=== PATIENT | female | born 1995 | race Caucasian/White ===

== ENCOUNTER 2017-02-08 14:33 | Emergency (ER) | payer OTHER ==
[2017-02-08] MEDS ORDERED: ONDANSETRON HCL/PF 4 MG/ 2ML VIAL IVP ONE ×2 (14:59→16:54)
[2017-02-08] MEDS ORDERED: 0.9 % SODIUM CHLORIDE 1,000 ML IV SCH (15:00)
[2017-02-08] MEDS ORDERED: 0.9 % SODIUM CHLORIDE 1,000 ML IV ONE (15:16)
[2017-02-08 15:37] LABS: BASOPHILS % 0.3 (0.0-1.5); EOSINOPHILS % 0.2 % (0.0-6.8); MEAN CORPUSCULAR HEMOGLOBIN 28.8 pg (28.0-34.0); MEAN CORPUSCULAR VOLUME 83.1 fl (80.0-100.0); MONOCYTES % 2.7 % (0.0-11.0)
[2017-02-08 16:14] LABS: eGFR (African) > 60; eGFR (Non-African) > 60
[2017-02-08 17:27] VITALS: BP 123/59
--- NOTE | 2017-02-08 17:32 | ED Physician Documentation ---
Abdominal Pain - HISTORIAN Historian: patient, friend, parent - HPI Stated Complaint: Abdominal pain with nausea and vomiting Chief Complaint: Abdominal Pain Additonal Information: N/E/D plus genl abd pain more lower abd feeling of "plugged up" onset2 days ago- worse today-now dry heaves--pt takes zantac for epigastric distress. pos chills yest - uncertain of fever-"SEEMS LIKE VIRUS" NO KNOWN ASSOC W/OTHER PT WITH SIMILAR. Onset: days ago (2) Duration: waxing, waning Timing: worse Context: denies: out of country travel, bad food, recent trauma Severity: moderate Quality: pain, cramping, sharp Associated Symptoms: chills, nausea, vomiting, diarrhea (emesis yellow diarrhea [id number] blood pus or mucous) - ROS CONST: no problems GI/: constipation (in past) CVS/RESP: none EYES/ENT: none MS/SKIN/LYMPH: none NEURO/PSYCH: none - SOCIAL HX Smoking History: non-smoker Alcohol Use: rarely Drug Use: none - FAMILY HX Family History: no significant history - PAST HX Past History: GERD Surgeries/Procedures: none Immunizations: UTD Home Medications: Ambulatory Orders Medication Instructions Recorded Norethindrone AC-Eth Estradiol 1 each PO 02/08/17 [Microgestin 21 1-20 Tablet] Ondansetron HCl Rapdis [Zofran Odt] 4 mg PO Q4 PRN #8 tab 02/08/17 Ranitidine HCl [Zantac] 150 mg PO 02/08/17 Sertraline HCl [Zoloft] 100 mg PO DAILY 02/08/17 Allergies/Adverse Reactions: Allergies Allergy/AdvReac Type Severity Reaction Status Date / Time No Known Allergies Allergy Unverified 02/08/17 14:50 - VITAL SIGNS Vital Signs: Vital Signs Temp Pulse Resp BP Pulse Ox 98.3 F 60 16 101/56 97 02/08/17 14:46 02/08/17 14:46 02/08/17 14:46 02/08/17 14:46 02/08/17 14:46 - REVIEWED ASSESSMENTS Nursing Assessment Reviewed: Yes Vitals Reviewed: Yes ED Results Lab/Radiology - Lab Results Lab Results: Lab Results 02/08/17 02/08/17 15:25 15:25 WBC 6.90 K/ul K/ul (4.00-12.00) RBC 4.87 M/ul M/ul (3.90-5.20) Hgb 14.0 g/dL g/dL (12.0-16.0) Hct 40.4 % % (34.5-46.5) MCV 83.1 fl fl (80.0-100.0) MCH 28.8 pg pg (28.0-34.0) MCHC 34.7 g/dL g/dL (30.0-36.0) RDW 12.9 % % (11.3-14.3) Plt Count 222 K/mm3 K/mm3 (130-400) Neut % (Auto) 85.9 % H % (39.0-79.0) Lymph % (Auto) 10.3 % L % (16.0-50.0) [place] % (Auto) 2.7 % % (0.0-11.0) Eos % (Auto) 0.2 % % (0.0-6.8) Baso % (Auto) 0.3 (0.0-1.5) Neut # 6.0 # k/uL # k/uL (1.4-7.7) Lymph # 0.7 # k/uL # k/uL (0.6-4.0) [place] # 0.2 # k/uL # k/uL (0.0-0.9) Eos # 0.0 # k/uL # k/uL (0.0-0.6) Baso # 0.0 # k/uL # k/uL (0.0-0.5) Reactive Lymphs % 0.6 % % (0.0-5.0) Reactive Lymphs # 0.0 # k/uL # k/uL (0.0-0.8) Sodium 140 mmol/L mmol/L (136-145) Potassium 3.1 mmol/L L mmol/L (3.5-5.0) Chloride 106 mmol/L mmol/L (98-110) Carbon Dioxide 25 mmol/L mmol/L (20-32) BUN 13 mg/dL mg/dL (10-26) Creatinine 0.6 mg/dL mg/dL (0.4-1.5) Estimated Creat Clear 274 Est GFR ( Amer) > 60 (60 - ) Est GFR (Non-Af Amer) > 60 (60 - ) Glucose 126 mg/dL H mg/dL (70-99) Calcium 10.0 mg/dL mg/dL (8.5-10.5) Total Bilirubin 0.4 mg/dL mg/dL (0.2-1.2) AST 18 U/L U/L (0-41) ALT 10 U/L U/L (0-45) Alkaline Phosphatase 60 U/L U/L (46-116) Total Protein 8.1 g/dL g/dL (6.0-8.5) Albumin 4.7 g/dL g/dL (3.0-5.5) Amylase 47 U/L U/L (20-104) - Radiology Radiology Impressions: xss gas feces ascending colon-reviewed w/ mom. after discussion w/pt-mom will go home use miralax to clean out rt colon-if not better rted soon or see pcp. pt says feels like "plugged up" - Orders Orders: ED Orders Category Date Time Status ABD SERIES PA CHEST [RAD] Stat Exams 02/08/17 Ordered AMYLASE Routine Lab 02/08/17 15:25 Completed CBC/PLATELET/DIFF Routine Lab 02/08/17 15:25 Completed CMP Routine Lab 02/08/17 15:25 Completed URINALYSIS Routine Lab 02/08/17 Ordered 0.9 % Sodium Chloride [Normal Saline] 1,000 ml Med 02/08/17 15:00 Ordered IV Q10H Ondansetron HCl/Pf [Zofran 4 mg/2 ml] Med 02/08/17 14:59 Discontinued 4 mg IVP NOW ONE Ondansetron HCl/Pf [Zofran 4 mg/2 ml] Med 02/08/17 16:54 Discontinued 4 mg IVP NOW ONE Abdominal Pain Physical Exam - Physical Exam General Appearance: moderate distress EENT: eye inspection normal, ENT inspection normal NECK: normal inspection, thyroid normal, supple RESPIRATORY: no resp distress, chest non-tender, breath sounds normal CVS: reg rate & rhythm, heart sounds normal ABDOMEN: soft, tenderness (generalized but more in lower abdomen. bowel sounds decreased) SKIN: warm/dry, normal color. No: cyanosis, diaphoresis, jaundice EXTREMITIES: non-tender, normal range of motion, no evidence of injury NEURO: oriented X3, motor nml, sensation nml, mood/affect nml Vital Signs: Vital Signs Temp Pulse Resp BP Pulse Ox 98.3 F 60 16 101/56 97 02/08/17 14:46 02/08/17 14:46 02/08/17 14:46 02/08/17 14:46 02/08/17 14:46 Discharge Clincal Impression: un dx abd pain Prescriptions: Ondansetron HCl Rapdis [Zofran Odt] 4 mg PO Q4 PRN #8 tab PRN Reason: Nausea / Vomiting Referrals: Primary Doctor,No [Primary Care Provider] - 2 Days Home Medications: Ambulatory Orders Norethindrone AC-Eth Estradiol [Microgestin 21 1-20 Tablet] 1 each PO 02/08/17 Ondansetron HCl Rapdis [Zofran Odt] 4 mg PO Q4 PRN #8 tab 02/08/17 Ranitidine HCl [Zantac] 150 mg PO 02/08/17 Sertraline HCl [Zoloft] 100 mg PO DAILY 02/08/17 Comments: will ret ed stat if sy worsen. pt mom agree to this approach but understand may need further studies rabia if not relieved by plan Condition: Good Disposition: 01 HOME, SELF-CARE Decision to Admit: NO Decision Time: 17:31
--- NOTE | 2017-02-08 18:28 | Diagnostic Imaging Report ---
[facility] [address] [facility].[address] [id number] Report Submission Date: Feb 08, 2017 4:01:14 PM CDT Patient Study Name: BRITANY BRYAN Date: Feb 08, 2017 3:28:28 PM CDT Modality Type: CR Gender: F Description: CHEST,ABDOMEN : 89 Institution: [facility] Physician: ORIN LUONG - ER Examination: Chest /Abdomen series History: Abdominal scattered Findings: 4 views obtained of the chest and abdomen. Single view of the chest demonstrates a normal cardiac silhouette. No focal infiltrate or effusion. No abnormal dilation of the large or small bowel. Air and stool throughout the large bowel. No suspicious calcification projecting over the renal fossa or the lower pelvic region. Osseous structures are appropriate for age. Impression: No acute pulmonary process. No ileus or obstruction. No suspicious calcifications by plain film sensitivity. Electronically signed on Feb 08, 2017 4:01:14 PM CDT by: Leonid MARQUEZ
== END 2017-02-08 17:24 | disposition home or self-care (01) ==
LOC: ED 14:33
DX: R10.9 Unspecified abdominal pain (principal)
CPT/HCPCS: 74022; 80053; 82150; 85025; J2405; J7030; 96361; 96376; 99283; S1016

== ENCOUNTER 2017-02-09 18:38 | Emergency (ER) | payer OTHER ==
[2017-02-09] MEDS ORDERED: 0.9 % SODIUM CHLORIDE 1,000 ML IV ONE ×2 (19:08→20:42)
[2017-02-09] MEDS ORDERED: 0.9 % SODIUM CHLORIDE 50 ML IV ONE (19:18)
[2017-02-09] MEDS ORDERED: PROMETHAZINE HCL 25 MG/ML VIAL ONE (19:18)
[2017-02-09] MEDS ORDERED: PROMETHAZINE HCL 25 MG in 0.9 % SODIUM CHLORIDE 50 ML IV ONE (19:18)
[2017-02-09] MEDS ORDERED: 0.9 % SODIUM CHLORIDE 1,000 ML IV SCH (19:30)
[2017-02-09 19:34] LABS: BASOPHILS % 0.3 (0.0-1.5); EOSINOPHILS % 0.4 % (0.0-6.8); MEAN CORPUSCULAR HEMOGLOBIN 28.9 pg (28.0-34.0); MEAN CORPUSCULAR VOLUME 81.8 fl (80.0-100.0); MONOCYTES % 2.9 % (0.0-11.0); NEUTROPHILS # 6.7 # k/uL (1.4-7.7)
[2017-02-09 19:48] LABS: eGFR (African) > 60; eGFR (Non-African) > 60
--- NOTE | 2017-02-09 19:53 | ED Physician Documentation ---
Nausea/Vomiting/Diarrhea - HISTORIAN Historian: patient - HPI Stated Complaint: nausea/vomiting Chief Complaint: Nausea,Vomiting,Diarrhea Timing: gradual onset Context: denies: out of country travel, bad food Severity: denies: moderate Further Comments: yes (sixPatient states she is develop some nausea and vomiting approximately four days ago. Patient stated is last for approximately 12 hours and then symptoms got better. However yesterday she started having some nausea vomiting again. This was associated with dry heaves. Patient has had some mild diarrhea but no fever. Patient was seen in the ED last night. Was felt to have a viral gap enteritis and was discharged home. Patient states she did fairly well this morning however this afternoon started having some nausea and vomiting once again. Patient has been dry heaving. Patient has been vomiting bilious material. Patient denies any recent fever or chills. Patient denies any previous abdominal problems. Patient is not had any abdominal surgery. Patient is currently taking control pills. Does have some mild diffuse tenderness to the epigastric admitted abdominal area. Patient describes it as being a burning cramping type pain.) - Associated Symptoms Vomiting: bilious. denies: bloody, blood-streaked Diarrhea: mild Abdominal Pain: cramping, burning, moderate - ROS CONST: chills. denies: fever - PAST HX Past History: other (anxiety) Other History: denies: gall stones Surgeries/Procedures: none - SOCIAL HX Smoking History: less than 1 pack/day (5/d) Alcohol Use: occasionally Drug Use: none - FAMILY HX Family History: none - REVIEWED ASSESSMENTS Nursing Assessment Reviewed: Yes Vitals Reviewed: Yes <John Francis - Last Filed: 02/09/17 19:35> <SOL NULL - Last Filed: 02/09/17 21:16> - PAST HX Allergies/Adverse Reactions: Allergies Allergy/AdvReac Type Severity Reaction Status Date / Time No Known Allergies Allergy Verified 02/09/17 18:51 Home Medications: Ambulatory Orders Medication Instructions Recorded Norethindrone AC-Eth Estradiol 1 each PO DAILY 02/08/17 [Microgestin 21 1-20 Tablet] Ondansetron HCl Rapdis [Zofran Odt] 4 mg PO Q4 PRN #8 tab 02/08/17 Ranitidine HCl [Zantac] 150 mg PO DAILY 02/08/17 Sertraline HCl [Zoloft] 100 mg PO DAILY 02/08/17 - VITAL SIGNS Vital Signs: Vital Signs Temp Pulse Resp BP Pulse Ox 98.7 F 118 H 22 123/59 98 02/09/17 18:52 02/09/17 18:52 02/09/17 18:52 02/09/17 18:52 02/09/17 18:52 Progress <John Francis - Last Filed: 02/09/17 19:35> <SOL NULL - Last Filed: 02/09/17 21:16> - Progress Progress: Examination: CT Abdomen/pelvis History: Right upper quadrant discomfort Comparison exams: None available Technique: CT Abdomen/pelvis with IV protocol. Findings: Liver, spleen, adrenals, pancreas, gallbladder are without gross irregularity. No abnormal enhancement. Bowel unopacified limiting evaluation. No abnormal dilation. Stool within the large bowel limiting sensitivity. No mesenteric inflammatory changes or free fluid. Osseous structures within normal limits. Lung bases with mild atelectasis. Fluid collection adjacent to the left aspect of the rectum measuring 6. 3 cm maxilmally. No adjacent inflammatory changes or thickened margins. Impression: No abdominal mass or inflammatory process. Left perirectal fluid collection measuring 6.3 cm maximally. No thickened margin to suggest loculated abscess. Correlate with any history of old injury/ surgery. Electronically signed on Feb 09, 2017 8:33:05 PM CDT by: Leonid Brooks She denies rectal or abdominal injury. 2039, says she feels better. (SOL NULL) Nausea Physical Exam - EXAM General Appearance: alert, moderate distress EENT: ENT inspection normal Neck: normal inspection, supple Respiratory: no resp distress, chest non-tender, breath sounds normal CVS: reg rate & rhythm, heart sounds normal, equal pulses, no murmur, no gallop Abdomen: no organomegaly, tenderness (mild diffuse tenderness), abnml bowel sounds (deminished), splenomegaly. No: guarding, rebound, hepatomegaly, distended bladder Back: non-tender Skin: warm/dry, normal color Extremities: non-tender Neuro/Psych: oriented X3, mood/affect nml <John Francis - Last Filed: 02/09/17 19:35> Discharge <John Francis - Last Filed: 06/20/17 19:35> Decision to Admit: NO Decision Time: 21:15 <SOL NULL - Last Filed: 02/09/17 21:16> Clincal Impression: Nausea & vomiting Referrals: Primary Doctor,No [Primary Care Provider] - 2 Days Additional Instructions: Advance your diet very slowly. If you vomit, wait an hour before trying sips of liquids. Follow up with your provider in the next 10-14 days to further evaluate the perirectal fluid collection see on the CT scan. Home Medications: Ambulatory Orders Norethindrone AC-Eth Estradiol [Microgestin 21 1-20 Tablet] 1 each PO DAILY Ondansetron HCl Rapdis [Zofran Odt] 4 mg PO Q4 PRN #8 tab 02/08/17 Ranitidine HCl [Zantac] 150 mg PO DAILY 02/08/17 Sertraline HCl [Zoloft] 100 mg PO DAILY 02/08/17 Condition: Good Disposition: 01 HOME, SELF-CARE
[2017-02-09] MEDS ORDERED: POTASSIUM CHLORIDE IV ONE ×2 (20:04)
[2017-02-09] MEDS ORDERED: POTASSIUM CHLORIDE 20 MEQ TABLET.ER PO ONE (20:42)
[2017-02-09] MEDS ORDERED: ONDANSETRON HCL/PF 4 MG/ 2ML VIAL ONE (21:52)
[2017-02-09] MEDS ORDERED: ONDANSETRON HCL/PF 4 MG/ 2ML VIAL IVP ONE (21:55)
[2017-02-09 22:06] VITALS: BP 121/67
--- NOTE | 2017-02-09 23:30 | Diagnostic Imaging Report ---
WANDA GOINS~ [facility] [address] [facility] [address] [place] [address]. [id number] ~ ~ ~ ~ Report Submission Date: Feb 09, 2017 8:33:05 PM CDT Patient ~ Study Name: BRITANY BRYAN ~ Date: Feb 09, 2017 7:54:10 PM CDT ~ Modality Type: CT\SR Gender: F ~ Description: CT ABD & PELVIS W/ CON : 95 ~ Institution: [facility] Physician: WANDA GOINS ~ ~ ~ ~ Examination: CT Abdomen/pelvis History: Right upper quadrant discomfort Comparison exams: None available Technique: CT Abdomen/pelvis with IV protocol.~ Findings:~ Liver, spleen, adrenals, pancreas, gallbladder are without gross irregularity.~ No abnormal enhancement. Bowel unopacified limiting evaluation. No abnormal dilation. Stool within the large bowel limiting sensitivity. No mesenteric inflammatory changes or free fluid. Osseous structures within normal limits. Lung bases with mild atelectasis. Fluid collection adjacent to the left aspect of the rectum measuring 6. 3 cm maxilmally. No adjacent inflammatory changes or thickened margins. Impression: No abdominal mass or inflammatory process. Left perirectal fluid collection measuring 6.3 cm maximally. ~No thickened margin to suggest loculated abscess. Correlate with any history of old injury/ surgery. ~ Electronically signed on Feb 09, 2017 8:33:05 PM CDT by: Leonid MARQUEZ
== END 2017-02-09 22:04 | disposition home or self-care (01) ==
LOC: ED 18:38
DX: R11.2 Nausea with vomiting, unspecified (principal); R10.11 Right upper quadrant pain
CPT/HCPCS: 74177; 80053; 82150; 85025; A9270; J2405; J2550; J7030; 96361; 96375; 99283